=== PATIENT | female | born 1940 | race Caucasian/White ===

== ENCOUNTER 2019-04-22 20:53 | Emergency (ER) | payer OTHER ==
[~2019-04-22] VITALS: Ht 147.3 cm; Wt 45.4 kg
[2019-04-22] MEDS ORDERED: LISINOPRIL5 MG (21:05)
[2019-04-22] MEDS ORDERED: ADULT ASPIRIN81 MG (21:06)
[2019-04-22] MEDS ORDERED: TENAZEPAN (21:06)
[2019-04-22] MEDS ORDERED: OMEPRAZOLE20 MG (21:07)
[2019-04-23] MEDS ORDERED: ZITHROMAX200 MG/53 PO (01:15)
[2019-04-23] MEDS ORDERED: NEBUSAL4 M1 IH (01:15)
== END 2019-04-23 04:02 | disposition home or self-care (01) ==
LOC: ER 20:53
DX: J06.9 Acute upper respiratory infection, unspecified (principal); R06.02 Shortness of breath